=== PATIENT | male | born 1970 ===

== ENCOUNTER 2024-11-09 05:50 | Day surgery (SDC) | payer OTHER ==
[2024-11-01 10:26] VITALS: BP 142/78
[2024-11-01 11:30] LABS: INR 0.99; PARTIAL THROMBOPLASTIN TIME 29.1 SECONDS (22.0-34.0); PROTHROMBIN TIME 10.8 SECONDS (9.0-11.5)
[~2024-11-09] VITALS: Ht 167.6 cm; Wt 86.2 kg
[~2024-11-09 05:50] MED LIST: NORVASC10 MG PO; TAMS0.4C PO
[2024-11-09] MEDS ORDERED: ENOXAPARIN SODIUM 40 MG/0.4 ML SYRINGE SUBCUTANEO ONE ×2 (07:13→07:18)
[2024-11-09] MEDS ORDERED: CEFAZOLIN SODIUM 1,000 MG VIAL ONE (07:14)
[2024-11-09] MEDS ORDERED: NEURONTIN600 M1 PO (07:52)
[2024-11-09] MEDS ORDERED: TRAM1TAB98 PO (07:53)
[2024-11-09] MEDS ORDERED: MIRALAX510 GM PO (07:54)
[2024-11-09] MEDS ORDERED: SURFAK240 M1 PO (07:54)
[2024-11-09] MEDS ORDERED: SULFAMETHOXAZO1 EACH PO (07:54)
[2024-11-09] MEDS ORDERED: BUPIVACAINE HCL/MPF 0.5% 30ML VIAL ONE (08:01)
[2024-11-09] MEDS ORDERED: BACTRIM DS TAB1 EACH PO (10:57)
== END 2024-11-09 14:30 | disposition home or self-care (01) ==
LOC: CIR.AMB 05:50
PROVIDERS: ATTEND Surgery
DX: K40.91 Unilateral inguinal hernia, without obstruction or gangrene, recurrent (principal); K42.0 Umbilical hernia with obstruction, without gangrene
CPT/HCPCS: 49651; 15734; C1781